=== PATIENT | female | born 1985 | race Caucasian/White ===

== ENCOUNTER → 2019-12-01 | Outpatient (REF) | payer BC, OTHER | LOC: M LAB REF 17:10 | PROVIDERS: ATTEND Dermatology | DX: C44.509 Unspecified malignant neoplasm of skin of other part of trunk (principal) ==

== ENCOUNTER → 2020-05-12 | Outpatient (CLI) | payer SELFPAY | LOC: M LABSMTC 08:20 | PROVIDERS: ATTEND Pediatrics | DX: Z20.828 Contact with and (suspected) exposure to other viral communicable diseases (principal) ==

== ENCOUNTER 2020-09-27 16:24 | Emergency (ER) | payer OTHER, SELFPAY ==
[~2020-09-27] VITALS: Ht 165.1 cm; Wt 59.1 kg
[2020-09-27] MEDS ORDERED: KARI28TA (16:49)
[2020-09-27] MEDS ORDERED: NS 1,000 ML IV ONE (16:50)
[2020-09-27 16:57] LABS: BASO # 0.1 10^3/uL (0.0-0.2); BASO % 0.5 % (0.0-1.0); EOS # 0.1 10^3/uL (0.0-0.5); EOS % 1.3 % (0.0-3.0); HEMATOCRIT 38.9 % (36.0-47.0); HEMOGLOBIN 13.3 g/dl (12.0-15.5); LYMPH # 3.2 10^3/uL (1.5-5.0); LYMPH % 31.1 % (24.0-44.0); MEAN CORPUSCULAR HGB CONC 34.2 g/dl (32.0-36.5); MEAN CORPUSCULAR VOLUME 96.5 fl (80.0-96.0); MONO # 0.5 10^3/uL (0.0-0.8); MONO % 4.6 % (2.0-8.0); NEUTROPHILS # 6.4 10^3/uL (1.5-8.5); NEUTROPHILS % 62.2 % (36.0-66.0); PLATELET COUNT, AUTOMATED 189 10^3/uL (150-450); RED BLOOD COUNT 4.03 10^6/uL (4.00-5.40); WHITE BLOOD COUNT 10.2 10^3/uL (4.0-10.0)
--- NOTE | 2020-09-27 17:17 | REP ---
INDICATION: CHEST PAIN COMPARISON: None. TECHNIQUE: Portable AP view of the chest FINDINGS: The cardiac silhouette appears enlarged and there appears to be a prominent ovoid silhouette in the left hilar region along the superior medial aspect of the cardiac silhouette which is of uncertain significance. The bilateral pulmonary arteries appear moderately prominent. The lung holt are clear. No effusion. No pneumothorax. Surgical clips are identified in the region of the right apex and old healed right rib fractures are noted. IMPRESSION: Somewhat abnormal contour to the left superior heart border/hilum. No prior examinations are available for comparison. Chest CT with contrast should be considered for further investigation. <Electronically signed by Dallas Olivares > 09/27/20 [id number]
[2020-09-27 17:20] LABS: HCG, SERUM QUALITATIVE NEGATIVE (NEGATIVE)
[2020-09-27 17:27] LABS: ALBUMIN 4.2 GM/DL (3.2-5.2); ALT/SGPT 77 U/L (12-78); BILIRUBIN,DIRECT 0.3 MG/DL (0.0-0.2); BILIRUBIN,TOTAL 0.7 MG/DL (0.2-1.0); BLOOD UREA NITROGEN 10 MG/DL (7-18); CALCIUM LEVEL 9.7 MG/DL (8.5-10.1); CARBON DIOXIDE LEVEL 25 MEQ/L (21-32); CHLORIDE LEVEL 108 MEQ/L (98-107); CK-MB VALUE MASS < 1.0 NG/ML (<3.6); CPK CREATINE PHOSPHOKINASE 84 U/L (26-192); CREATININE FOR GFR 0.88 MG/DL (0.55-1.30); FREE THYROXINE INDEX 4.3 % (1.3-4.8); GLOMERULAR FILTRATION RATE > 60.0 (>60); GLUCOSE, FASTING 119 MG/DL (70-100); MAGNESIUM LEVEL 1.9 MG/DL (1.8-2.4); MB/CK RELATIVE INDEX 1.19 (< OR =4); POTASSIUM SERUM 4.5 MEQ/L (3.5-5.1); SODIUM LEVEL 140 MEQ/L (136-145); T UPTAKE 35 % (30-39); THYROXINE (T4) 12.3 UG/DL (4.5-12.0); TOTAL PROTEIN 7.1 GM/DL (6.4-8.2); TROPONIN I < 0.02 NG/ML (< 0.10)
[2020-09-27 18:12] VITALS: BP 132/78
--- NOTE | 2020-09-27 18:20 | ECGEPIP ---
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
--- NOTE | 2020-09-29 09:53 | ED PDOC ---
Post-Departure Follow-Up radiology report faxed to Tawny Argueta MD Sep 29, 2020 09:53
== END 2020-09-27 18:14 | disposition home or self-care (01) ==
LOC: M ED 16:24
DX: I47.9 Paroxysmal tachycardia, unspecified (principal); I45.10 Unspecified right bundle-branch block; I25.2 Old myocardial infarction; Z79.3 Long term (current) use of hormonal contraceptives; Z82.49 Family history of ischemic heart disease and other diseases of the circulatory system; Z88.8 Allergy status to other drugs, medicaments and biological substances

== ENCOUNTER → 2021-06-24 | Outpatient (CLI) | payer OTHER ==
[~2021-06-24] MED LIST: KARI28TA
[2021-06-24 17:30] LABS: HEMATOCRIT 40.8 % (36.0-47.0); HEMOGLOBIN 13.5 g/dl (12.0-15.5); MEAN CORPUSCULAR HEMOGLOBIN 31.8 pg (27.0-33.0); MEAN CORPUSCULAR HGB CONC 33.1 g/dl (32.0-36.5); PLATELET COUNT, AUTOMATED 224 10^3/uL (150-450); RED BLOOD COUNT 4.25 10^6/uL (4.00-5.40); WHITE BLOOD COUNT 7.9 10^3/uL (4.0-10.0)
== END ==
LOC: M PLALAB 14:55
PROVIDERS: ATTEND Advanced Practice Midwife
DX: Z12.4 Encounter for screening for malignant neoplasm of cervix (principal)
CPT/HCPCS: 36415; 84443; 85027; 87624; G0123

== ENCOUNTER → 2021-07-01 | Outpatient (CLI) | payer OTHER | LOC: M WHC 15:27 | PROVIDERS: ATTEND Advanced Practice Midwife | DX: N92.6 Irregular menstruation, unspecified (principal); R14.0 Abdominal distension (gaseous); R53.83 Other fatigue ==

== ENCOUNTER → 2021-07-16 | Outpatient (REF) | payer OTHER | LOC: M LAB REF 17:37 | PROVIDERS: ATTEND Physician Assistant | DX: D23.5 Other benign neoplasm of skin of trunk (principal) ==

== ENCOUNTER → 2021-08-28 | Outpatient (CLI) | payer OTHER ==
[~2021-08-28] MED LIST changes: +BIOT1CAP2 PO; +ZYRTTAB8 PO
== END ==
LOC: M LABSMTC 10:58
PROVIDERS: ATTEND Anesthesiology
DX: Z11.52 Encounter for screening for COVID-19 (principal)

== ENCOUNTER 2021-09-02 08:57 | Day surgery (SDC) | payer OTHER ==
[~2021-09-02] VITALS: Ht 160 cm; Wt 59.6 kg
[~2021-09-02 08:57] MED LIST changes: +LR 1,000 ML IV ONE
[2021-09-02] MEDS ORDERED: fentaNYL 100 MCG/2 ML INJECTION As Ordered ONE (09:23)
[2021-09-02] MEDS ORDERED: LIDOCAINE 2% 100MG/5ML SDV (FOR ANES.) As Ordered ONE (09:23)
[2021-09-02] MEDS ORDERED: propofoL 200 MG/20 ML VIAL As Ordered ONE (09:23)
[2021-09-02] MEDS ORDERED: ONDANSETRON 4MG/2ML VIAL As Ordered ONE (09:24)
[2021-09-02] MEDS ORDERED: dexameTHASONE 4 MG/ML 1ML VIAL (J1100 PER 1MG) As Ordered ONE (09:24)
[2021-09-02] MEDS ORDERED: MIDAZOLAM INJ 2MG/2ML VIAL (J2250 PER 1MG) As Ordered ONE (09:24)
[2021-09-02] MEDS ORDERED: KETOROLAC 60MG 2ML VIAL As Ordered ONE (09:32)
[2021-09-02 09:46] LABS: HEMATOCRIT 39.1 % (36.0-47.0); HEMOGLOBIN 13.3 g/dl (12.0-15.5); MEAN CORPUSCULAR HEMOGLOBIN 32.4 pg (27.0-33.0); MEAN CORPUSCULAR VOLUME 95.4 fl (80.0-96.0); PLATELET COUNT, AUTOMATED 222 10^3/uL (150-450); WHITE BLOOD COUNT 6.8 10^3/uL (4.0-10.0)
[2021-09-02] MEDS ORDERED: LR 1,000 ML IV SCH (12:15)
[2021-09-02] MEDS ORDERED: oxyCODONE 5MG TAB PO PRN (12:15)
[2021-09-02] MEDS ORDERED: PERCOCET 5MG/325MG TAB PO PRN (12:15)
[2021-09-02] MEDS ORDERED: fentaNYL 100 MCG/2 ML INJECTION IV PRN (12:15)
[2021-09-02] MEDS ORDERED: ONDANSETRON 4MG/2ML VIAL IV PRN (12:15)
[2021-09-02 12:54] VITALS: BP 154/74
== END 2021-09-02 13:11 | disposition home or self-care (01) ==
LOC: M SDC 08:57
PROVIDERS: ATTEND Obstetrics & Gynecology
DX: N84.0 Polyp of corpus uteri (principal); Z79.899 Other long term (current) drug therapy; Z88.8 Allergy status to other drugs, medicaments and biological substances
CPT/HCPCS: 36415; 58558; 81025; 85027; 86850; 86900; 86901; 88305; J1100; J1885; J2250; J2405; J3010

== ENCOUNTER 2021-09-04 15:44 | Emergency (ER) | payer OTHER ==
[~2021-09-04] VITALS: Ht 160 cm; Wt 60.4 kg
[~2021-09-04 15:44] MED LIST changes: -LR 1,000 ML IV ONE
[2021-09-04] MEDS ORDERED: IBUP200C25 PO (16:35)
[2021-09-04 20:41] LABS: BASO # 0.1 10^3/uL (0.0-0.2); BASO % 0.8 % (0.0-1.0); EOS # 0.1 10^3/uL (0.0-0.5); EOS % 1.2 % (0.0-3.0); HEMATOCRIT 38.2 % (36.0-47.0); LYMPH # 3.6 10^3/uL (1.5-5.0); LYMPH % 40.3 % (24.0-44.0); MEAN CORPUSCULAR HEMOGLOBIN 32.4 pg (27.0-33.0); MEAN CORPUSCULAR VOLUME 95.3 fl (80.0-96.0); MONO # 0.4 10^3/uL (0.0-0.8); MONO % 4.3 % (2.0-8.0); NEUTROPHILS # 4.7 10^3/uL (1.5-8.5); NEUTROPHILS % 53.2 % (36.0-66.0); PLATELET COUNT, AUTOMATED 213 10^3/uL (150-450); RED BLOOD COUNT 4.01 10^6/uL (4.00-5.40); WHITE BLOOD COUNT 8.9 10^3/uL (4.0-10.0)
[2021-09-04] MEDS ORDERED: ISOVUE-370 76% 100ML VIAL As Ordered ONE (21:07)
[2021-09-04 22:50] VITALS: BP 133/79
== END 2021-09-04 23:33 | disposition home or self-care (01) ==
LOC: M ED 15:44
DX: R06.02 Shortness of breath (principal); Z88.8 Allergy status to other drugs, medicaments and biological substances; F12.20 Cannabis dependence, uncomplicated
CPT/HCPCS: 36415; 71046; 71275; 80047; 83880; 85025; 87486; 87581; 87633; 87798; 93005; 99283; Q9967

== ENCOUNTER → 2023-06-16 | Outpatient (CLI) | payer OTHER ==
[~2023-06-16] MED LIST changes: +IBUP200C25 PO
== END ==
LOC: M WHC 14:03
PROVIDERS: ATTEND Advanced Practice Midwife
DX: Z12.31 Encounter for screening mammogram for malignant neoplasm of breast (principal)
CPT/HCPCS: 87624; G0123

== ENCOUNTER → 2023-07-03 | Outpatient (CLI) | payer OTHER | LOC: M WHC 12:53 | PROVIDERS: ATTEND Advanced Practice Midwife | DX: Z12.31 Encounter for screening mammogram for malignant neoplasm of breast (principal) ==

== ENCOUNTER → 2023-07-03 | Outpatient (REF) | payer OTHER | LOC: M SFHCWAGY 17:51 | PROVIDERS: ATTEND Advanced Practice Midwife | DX: N90.89 Other specified noninflammatory disorders of vulva and perineum (principal) ==

== ENCOUNTER → 2023-09-16 | Outpatient (REF) | payer OTHER | LOC: M LAB REF 16:10 | PROVIDERS: ATTEND Surgery | DX: D48.5 Neoplasm of uncertain behavior of skin (principal) ==

== ENCOUNTER → 2024-02-23 | Outpatient (REF) | payer OTHER | LOC: M SFHCDERM 08:30 | PROVIDERS: ATTEND Physician Assistant | DX: C44.319 Basal cell carcinoma of skin of other parts of face (principal); L57.8 Other skin changes due to chronic exposure to nonionizing radiation ==

== ENCOUNTER → 2024-04-20 | Outpatient (CLI) | payer OTHER | LOC: M ONCR 14:59 | PROVIDERS: ATTEND General Practice | DX: C44.319 Basal cell carcinoma of skin of other parts of face (principal); Z79.899 Other long term (current) drug therapy; Z80.8 Family history of malignant neoplasm of other organs or systems; Z88.8 Allergy status to other drugs, medicaments and biological substances ==

== ENCOUNTER 2024-05-18 07:54 | Outpatient (RCR) | payer OTHER | END 2024-06-07 | LOC: M ONCR 07:54 | PROVIDERS: ATTEND General Practice | DX: Z51.0 Encounter for antineoplastic radiation therapy (principal); C44.41 Basal cell carcinoma of skin of scalp and neck ==

== ENCOUNTER → 2024-07-08 | Outpatient (RCR) | payer OTHER | LOC: M ONCR 06-09 15:42 | PROVIDERS: ATTEND General Practice | DX: Z51.0 Encounter for antineoplastic radiation therapy (principal); C44.41 Basal cell carcinoma of skin of scalp and neck ==

== ENCOUNTER 2024-07-15 15:45 | Outpatient (RCR) | payer OTHER | END 2024-08-05 | LOC: M ONCR 15:45 | PROVIDERS: ATTEND General Practice | DX: Z51.0 Encounter for antineoplastic radiation therapy (principal); C44.41 Basal cell carcinoma of skin of scalp and neck ==

== ENCOUNTER → 2024-07-18 | Outpatient (CLI) | payer OTHER | LOC: M WHC 14:39 | PROVIDERS: ATTEND Advanced Practice Midwife | DX: Z12.31 Encounter for screening mammogram for malignant neoplasm of breast (principal); R92.333 Mammographic heterogeneous density, bilateral breasts | CPT/HCPCS: 76642; 77066; G0279 ==

== ENCOUNTER → 2024-08-12 | Outpatient (CLI) | payer OTHER | LOC: M ONCR 14:56 | PROVIDERS: ATTEND General Practice | DX: Z08 Encounter for follow-up examination after completed treatment for malignant neoplasm (principal); Z85.828 Personal history of other malignant neoplasm of skin; Z92.3 Personal history of irradiation ==

== ENCOUNTER → 2025-01-12 | Outpatient (CLI) | payer OTHER | LOC: M ONCR 15:22 | PROVIDERS: ATTEND General Practice | DX: Z08 Encounter for follow-up examination after completed treatment for malignant neoplasm (principal); Z85.828 Personal history of other malignant neoplasm of skin; Z92.3 Personal history of irradiation; Z88.8 Allergy status to other drugs, medicaments and biological substances; Z79.899 Other long term (current) drug therapy ==